=== PATIENT | male | born 1940 | race Caucasian/White ===

== ENCOUNTER → 2023-12-30 11:48 | Outpatient (CLI) | payer MEDICARE, OTHER, SELFPAY ==
--- NOTE | 2023-12-30 11:50 | DI.RAD.S_ITS ---
PROCEDURE: XR HAND LT 2V INDICATIONS: FOOSH 4/5th metacarpal tender TECHNIQUE: 2 views of the hand(s) acquired. COMPARISON: None. FINDINGS: Bones: No fractures or dislocations. Carpal bones are normally aligned. No suspicious bony lesions. Interphalangeal joint space narrowing with osteophytosis. Soft tissues: No suspicious soft tissue calcifications. IMPRESSION: No acute bony abnormality. Dictated by: Robbie Steen M.D. on 12/30/2023 at 11:32 Approved by: Robbie Steen M.D. on 12/30/2023 at 11:33
--- NOTE | 2023-12-30 11:50 | DI.RAD.S_ITS ---
PROCEDURE: XR KNEE LT 3V INDICATIONS: fall onto left knee/pain with weight bearing TECHNIQUE: 3 views of the knee were acquired. COMPARISON: None. FINDINGS: Bones: No fractures or dislocations. No suspicious bony lesions. Tricompartmental joint space narrowing with associated osteophytosis. Soft tissues: Moderate joint effusion. No suspicious soft tissue calcifications. IMPRESSION: No acute bony abnormality. Moderate joint effusion. Internal derangement not excluded. 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 Dictated by: Robbie Steen M.D. on 12/30/2023 at 11:35 Approved by: Robbie Steen M.D. on 12/30/2023 at 11:35
--- NOTE | 2023-12-30 11:50 | DI.RAD.S_ITS ---
PROCEDURE: XR WRIST LT MIN 3V INDICATIONS: FOOSH 4/5th distal radius/ulna tender TECHNIQUE: 4 views of the wrist were acquired. COMPARISON: None. FINDINGS: Bones: No fractures or dislocations. No suspicious bony lesions. Radiocarpal and carpal carpal joint space narrowing with osteophytosis and subchondral cystic change. Soft tissues: No suspicious soft tissue calcifications. IMPRESSION: No acute bony abnormality. Moderate degenerative changes of the wrist. Dictated by: Robbie Steen M.D. on 12/30/2023 at 11:33 Approved by: Robbie Steen M.D. on 12/30/2023 at 11:34
--- NOTE | 2023-12-30 11:50 | DI.RAD.S_ITS ---
PROCEDURE: XR WRIST RT MIN 3V INDICATIONS: foosh TECHNIQUE: 4 views of the wrist were acquired. COMPARISON: None. FINDINGS: Bones: No fractures or dislocations. No suspicious bony lesions. 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 Mild sclerosis of the lunate. Soft tissues: No suspicious soft tissue calcifications. IMPRESSION: No acute bony abnormality. 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 Significant degenerative change of the wrist. Dictated by: Robbie Steen M.D. on 12/30/2023 at 11:35 Approved by: Robbie Steen M.D. on 12/30/2023 at 11:36
== END ==
PROVIDERS: Referring Provider Student in an Organized Health Care Education/Training Program; Visit Provider Student in an Organized Health Care Education/Training Program
DX: S63.92XA Sprain of unspecified part of left wrist and hand, initial encounter (principal); S63.502A Unspecified sprain of left wrist, initial encounter; M17.12 Unilateral primary osteoarthritis, left knee; S63.501A Unspecified sprain of right wrist, initial encounter; M25.462 Effusion, left knee; W19.XXXA Unspecified fall, initial encounter
CPT/HCPCS: 73110; 73120; 73562